=== PATIENT | female | born 2005 | race African-American/Black ===

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

== ENCOUNTER 2025-06-11 19:24 | Emergency (ER) | payer SELFPAY | END 2025-06-11 21:55 | LOC: CSHERS 19:24 | DX: O20.0 Threatened abortion (principal); Z55.6 Problems related to health literacy; Z3A.01 Less than 8 weeks gestation of pregnancy | CPT/HCPCS: 36415; 84702; 99284 ==

== ENCOUNTER 2025-07-07 02:11 | Emergency (ER) | payer MEDICAID, SELFPAY ==
[2025-07-07 02:55] LABS: #Basophils 0.03 10x3/uL (0.0-0.2); #Eosinophils 0.30 10x3/uL (0.0-0.5); #Monocytes 1.05 10x3/uL (0.0-1.1); #Neutrophils 7.11 10x3/uL (1.5-8.4); %Basophils 0.3 % (0.0-2.0); %Eosinophils 2.7 % (0.0-6.0); %Lymphocytes 24.2 % (18.0-47.0); %Monocytes 9.3 % (0.0-10.0); %Neutrophils 63.1 % (40.0-75.0); Hematocrit 33.2 % (34.9-44.5); Hemoglobin 10.7 g/dL (12.0-15.5); Mean Corpuscular Hemoglobin 29.8 pg (27.0-33.0); Mean Corpuscular Volume 92.5 fL (81.6-98.3); Platelet Count 289 10x3/uL (150-450); Red Blood Cell (RBC) Count 3.59 10x6/uL (3.90-5.03); White Blood Cell (WBC) Count 11.26 10x3/uL (3.5-10.5)
[2025-07-07] MEDS ORDERED: Tranexamic Acid 1,000 MG/10 ML VIAL ONE (02:55)
[2025-07-07] MEDS ORDERED: Ketorolac Tromethamine 30 MG (1 mL) VIAL ONE (02:55)
[2025-07-07 03:07] LABS: ALT (SGPT) 17 U/L (Less than 34); AST (SGOT) 29 U/L (11-34); Albumin 3.8 g/dL (3.1-4.5); Alkaline Phosphatase 66 U/L (40-100); Anion Gap 10 mmol/L (10-20); BUN (Urea Nitrogen) 6 mg/dL (8.4-21.0); Bilirubin, Total 0.3 mg/dL (0.3-1.2); Calc. Creatinine Clearance 0 mL/min (70-130); Calcium 9.0 mg/dL (7.8-10.44); Carbon Dioxide 21 mmol/L (22-29); Chloride 109 mmol/L (98-107); Globulin 3.3 g/dL (2.4-3.5); Glucose 96 mg/dL (70-105); Potassium 3.9 mmol/L (3.5-5.1); Sodium 136 mmol/L (136-145)
[2025-07-07 03:57] LABS: Glucose, Urine (Dipstick) Normal (Negative); Leukocyte 100 (Negative); Protein, Urine (Dipstick) 30 mg/dl (Neg-Trace); Specific Gravity, Urine 1.010 (1.005-1.030)
[2025-07-07 04:06] LABS: Bacteria/HPF None Seen HPF (None Seen); CAUTI Indications for Culture Pregnancy; RBC/HPF Greater than 50 HPF (0-3); WBC/HPF 0-3 HPF (0-3)
[2025-07-07 04:07] LABS: Urine Culture Reflex Yes Yes
== END 2025-07-07 05:01 | disposition home or self-care (01) ==
LOC: CSHERS 02:11
DX: O03.4 Incomplete spontaneous abortion without complication (principal)
CPT/HCPCS: 76856; 80053; 81001; 85025; 87086; 96365; 96375; J1885

== ENCOUNTER 2025-09-03 17:49 | Emergency (ER) | payer SELFPAY | END 2025-09-03 18:30 | disposition home or self-care (01) | LOC: CSHERS 17:49 | DX: K00.6 Disturbances in tooth eruption (principal) | CPT/HCPCS: 99282 ==

== ENCOUNTER 2025-09-10 21:06 | Emergency (ER) | payer SELFPAY ==
[2025-09-10] MEDS ORDERED: Ketorolac Tromethamine 30 MG (1 mL) VIAL ONE (22:26)
[2025-09-10] MEDS ORDERED: Amoxicillin/Potassium Clav 875 MG TAB ONE (22:27)
== END 2025-09-10 22:26 | disposition home or self-care (01) ==
LOC: CSHERS 21:06
DX: K08.89 Other specified disorders of teeth and supporting structures (principal)
CPT/HCPCS: 96372; 99282; J1885